=== PATIENT | male | born 1950 | race Hispanic/Latino ===

== ENCOUNTER 2017-11-04 11:54 | Emergency (ER) | payer OTHER ==
[~2017-11-04] VITALS: Ht 167.6 cm; Wt 102.1 kg
[~2017-11-04 11:54] MED LIST: HYDROCHLOROTH12.5 M1 PO; LISINOPRIL40 MG PO; LOVASTATIN40 MG PO; NORVASC5 MG PO; OMEPRAZOLE40 MG PO
[2017-11-04 12:43] LABS: BILIRUBIN,URINE NEGATIVE (NEGATIVE); KETONES,URINE NEGATIVE (NEGATIVE); LEUKOCYTE ESTERASE ,URINE NEGATIVE (NEGATIVE); NITRITE,URINE NEGATIVE (NEGATIVE); URINE UROBILINOGEN 0.2 mg/dL (0.2 - 1)
[2017-11-04 12:50] LABS: CLARITY,URINE SL CLOUDY (CLEAR); COLOR,URINE YELLOW (YELLOW); PROTEIN,URINE DIPSTICK 1+ (NEGATIVE)
[2017-11-04 12:59] LABS: BACTERIA,URINE RARE /HPF; EPITHELIAL CELLS,URINE RARE /LPF; RBC,URINE 21-50 /HPF (0-5)
[2017-11-04 13:09] LABS: BASOPHILS % 0.2 % (0.0-1.0); EOSINOPHILS # (AUTO) 0.2 (0.0-0.4); EOSINOPHILS % 1.7 % (0.0-6.0); HEMATOCRIT 40.9 % (38.2-49.6); HEMOGLOBIN 14.2 g/dL (14.0-18.0); LYMPHOCYTES # (AUTO) 2.2 (1.0-3.2); LYMPHOCYTES % 25.4 % (18.0-39.1); MEAN CORPUSCULAR HEMOGLOBIN 30.9 pg (28-32); MEAN CORPUSCULAR HGB CONC 34.7 g/dL (31-35); MEAN CORPUSCULAR VOLUME 88.9 fL (81-99); MONOCYTES # (AUTO) 0.8 (0.2-0.8); MONOCYTES % 8.7 % (4.4-11.3); NEUTROPHILS # (AUTO) 5.6 (2.1-6.9); PLATELET COUNT 247 x10e3/uL (140-360); RED CELL DISTRIBUTION WIDTH 11.9 % (11.7-14.4)
[2017-11-04 13:27] LABS: ALANINE AMINOTRANSFERASE 26 IU/L (0-55); ALBUMIN 3.4 g/dL (3.5-5.0); ALBUMIN/GLOBULIN RATIO 0.7 (0.8-2.0); ALKALINE PHOSPHATASE 94 IU/L (40-150); BLOOD UREA NITROGEN 14 mg/dL (7-26); BUN/CREATININE RATIO 13 (6-25); CALCIUM 9.5 mg/dL (8.4-10.2); CARBON DIOXIDE 24 mmol/L (22-29); CHLORIDE 95 mmol/L (98-107); CREATININE, SERUM 1.05 mg/dL (0.72-1.25); EST GLOMERULAR FILTRATION RATE > 60 ML/MIN (60-); GLUCOSE 110 mg/dL (74-118); SODIUM 127 mmol/L (136-145)
[2017-11-04] MEDS ORDERED: CIPRO500 MG PO (14:27)
[2017-11-04 14:50] VITALS: BP 133/82
== END 2017-11-04 15:03 | disposition home or self-care (01) ==
LOC: ER 11:54
DX: R30.0 Dysuria (principal); N30.91 Cystitis, unspecified with hematuria; N41.9 Inflammatory disease of prostate, unspecified; I10 Essential (primary) hypertension
CPT/HCPCS: 36415; 80053; 81001; 85025; 87086; 99284

== ENCOUNTER → 2019-09-05 | Day surgery (SDC) | payer MEDICARE ==
[2019-08-30 10:55] LABS: BASOPHILS % 0.4 % (0.0-1.0); EOSINOPHILS # (AUTO) 0.3 (0.0-0.4); EOSINOPHILS % 5.5 % (0.0-6.0); HEMATOCRIT 44.6 % (38.2-49.6); LYMPHOCYTES # (AUTO) 2.1 (1.0-3.2); LYMPHOCYTES % 44.9 % (18.0-39.1); MEAN CORPUSCULAR HEMOGLOBIN 30.4 pg (28-32); MEAN CORPUSCULAR HGB CONC 33.6 g/dL (31-35); MEAN CORPUSCULAR VOLUME 90.3 fL (81-99); MONOCYTES # (AUTO) 0.5 (0.2-0.8); MONOCYTES % 10.4 % (4.4-11.3); NEUTROPHILS # (AUTO) 1.8 (2.1-6.9); NEUTROPHILS % 38.6 % (38.7-80.0); PLATELET COUNT 164 x10e3/uL (140-360); RED BLOOD COUNT 4.94 x10e6/uL (4.3-5.7); RED CELL DISTRIBUTION WIDTH 12.7 % (11.7-14.4)
--- NOTE | 2019-08-30 11:07 | Diagnostic Imaging Report ---
Chest, PA and lateral. History: Preoperative evaluation for knee surgery. Comparison: None available. Discussion: The cardiomediastinal silhouette and pulmonary vasculature are within normal limits. The lungs are clear without evidence of consolidation or effusion. There are no acute osseous abnormalities. The soft tissues are unremarkable. IMPRESSION: No radiographic evidence of acute cardiopulmonary abnormality. Signed by: Jalil Benítez MD on 08/30/2019 11:04 AM
[2019-08-30 11:16] LABS: ANION GAP 10.9 mmol/L (8-16); BLOOD UREA NITROGEN 12 mg/dL (7-26); BUN/CREATININE RATIO 12 (6-25); CALCIUM 9.9 mg/dL (8.4-10.2); CARBON DIOXIDE 27 mmol/L (22-29); CHLORIDE 102 mmol/L (98-107); CREATININE, SERUM 1.03 mg/dL (0.72-1.25); EST GLOMERULAR FILTRATION RATE > 60 ML/MIN (60-); GLUCOSE 89 mg/dL (74-118); POTASSIUM 3.9 mmol/L (3.5-5.1); SODIUM 136 mmol/L (136-145)
[~2019-09-05] MED LIST changes: +ACETAMINOPHEN 1000 MG/100 ML IV ONE; +ACETAMINOPHEN/CODEINE 300MG - 30MG TAB ONE; +CEFAZOLIN SOD 1 GM/NS 50ML 50 ML IV ONE; +CIPRO500 MG PO; +DEXAMETHASONE SOD PHOS INJ 4 MG/ML VIAL ONE; +EPHEDRINE SULFATE INJ 50 MG/10 ML SYR ONE; +FENTANYL CITRATE/PF 100MCG/2 ML INJ ONE; +LIDOCAINE HCL 2% LOCAL INJ 5 ML SDV VIAL INJ ONE; +ONDANSETRON HCL INJ 2MG/ML 2ML 2 MG/ML VIAL ONE; +OXYBUTYNIN CHLOR5 MG PO; +PROPOFOL IV EMULSION 10 MG/ML 20 ML VIAL ONE; +SEVOFLURANE INHAL SOLN 250 ML PEN BTL ONE
--- OUTSIDE RECORDS SUMMARY | 2019-09-05 06:52 | XMS REPORT ---
Author Author [facility] Address Unknown Phone Unavailable Care Team Providers Care Unload Associate Name Role Phone LENI NAYLOR Unavailable Unavailable Problems This patient has no known problems. Allergies, Adverse Reactions, Alerts This patient has no known allergies or adverse reactions. Medications This patient has no known medications. Results Test Description Test Time Test Comments Text Results Atomic Results Result Comments CHEST 2 VIEWS 2019-08-30 11:03:00 [place] [address] Patient Name: TEJ SHIRLEY MR #: [id number] : 1950 Age/Sex: 69/M Req #: [id number] [facility] Physician: Ordered by: LENI NAYLOR MD Report #: [id number] Location: OR Room/Bed: Procedure: [id number] DX/CHEST 2 VIEWS Exam Date: 08/30/19 Exam Time: 1041 REPORT STATUS: Signed Chest, PA and lateral. History: Preoperative evaluation f or knee surgery. Comparison: None available. Discussion: The cardiomediastinal silhouette and pulmonary vasculature are within normal limits. The lungs are clear without evidence of consolidation or effusion. There are no acute osseous abnormalities. The soft tissues are unremarkable. IMPRESSION: No radiographic evidence of acute cardiopulmonary abnormality. Signed by: Jalil White MD on 08/30/2019 11:04 AM Dictated By: JALIL WHITE MD 03 Transcribed By: TABITHA on 08/30/191103 COPY TO: LENI NAYLOR MD
[2019-09-05 10:00] VITALS: BP 125/74
--- NOTE | 2019-09-05 16:47 | Operative Report ---
DATE OF PROCEDURE: 09/05/2019 SURGEON: Deandre Moctezuma MD SALES SERVICE REPRESENTATIVE: Avelino Reyna, certified PA. PREOPERATIVE DIAGNOSIS: Medial meniscal tear, left knee. 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 PROCEDURE: Left knee arthroscopy, partial medial meniscectomy, chondroplasty of the trochlear groove. INDICATIONS: The patient is a 69-year-old gentleman who has mechanical symptoms consistent with a medial meniscal tear in his left knee. He has failed conservative management and would like to proceed with arthroscopic intervention. The risks and benefits have been discussed. Realistic expectations have been stressed. The likelihood of some persistent arthritic pain has been explained. He states he understands and wishes to proceed. PROCEDURE IN DETAIL: The patient was brought to the operating room and placed under general anesthetic. His left lower extremity was prepped and draped in a sterile manner. A preoperative time-out was performed. A tourniquet placed on the upper thigh had been inflated to 300 mmHg. Standard arthroscopy portals were established. The knee was insufflated with sterile saline and systematically inspected. He was noted to have grade 3 changes of chondromalacia in the trochlear groove. The medial compartment was inspected. He was noted to have a complex tear of the posterior horn of the medial meniscus. There was also some grade 2 changes of chondromalacia of the medial femoral condyle. A combination of biting forceps and a mechanical shaver were used to debride the meniscal tear back to a stable margin. Gentle chondroplasty was performed of the medial femoral condyle to remove unstable fragments of cartilage. Before and after photographs were taken. The cruciate ligaments were inspected and probed. They were unremarkable. The lateral compartment appeared well preserved. There was no evidence of a lateral meniscal tear. Attention was returned to the trochlear groove. Gentle chondroplasty was performed to remove a large unstable fragment of cartilage. The knee was further irrigated. The arthroscopic instruments were removed. The portal incisions were closed with nylon stitches. A sterile bandage was applied. The patient was extubated and transported to the recovery room in stable condition. There was no blood loss and all needle and sponge counts were correct. Deandre Moctezuma MD DR/MODL /[id number]
== END | disposition home or self-care (01) ==
LOC: OR 06:50
PROVIDERS: ATTEND Specialist
DX: S83.232A Complex tear of medial meniscus, current injury, left knee, initial encounter (principal); I10 Essential (primary) hypertension; Z90.49 Acquired absence of other specified parts of digestive tract; E78.5 Hyperlipidemia, unspecified; M19.90 Unspecified osteoarthritis, unspecified site; Z01.810 Encounter for preprocedural cardiovascular examination; Z01.812 Encounter for preprocedural laboratory examination; Z01.811 Encounter for preprocedural respiratory examination; M94.262 Chondromalacia, left knee
CPT/HCPCS: 29881; 36415; 71046; 80048; 85025; 93005; J0131; J0690; J1100; J2001; J2405; J2704; J3010